=== PATIENT | male | born 1945 | race Caucasian/White ===

== ENCOUNTER 2019-09-10 07:57 | Day surgery (SDC) | payer MEDICARE ==
[2019-09-06 15:12] VITALS: BMI 24.3
[~2019-09-10 07:57] MED LIST: LACTATED RINGERS 1,000 ML IV SCH
[2019-09-10 08:22] VITALS: RESP 16; TEMP 97.5
[2019-09-10] MEDS ORDERED: LIDOCAINE 1% 20 ML VIAL (10MG/ML) FOR IV START INTRADERMA ONE (08:26)
[2019-09-10] MEDS ORDERED: MIDAZOLAM 2 MG/2 ML VIAL ONE (09:20)
[2019-09-10] MEDS ORDERED: fentaNYL (PF) 50 MCG/ML 2 ML AMP ONE (09:20)
[2019-09-10] MEDS ORDERED: LIDOCAINE 1% INJ 10MG/ML (20 ML MDV) ONE (09:20)
[2019-09-10] MEDS ORDERED: PROPOFOL 10 MG/ML 20 ML VIAL IV ONE (09:20)
--- NOTE | 2019-09-10 09:24 | P.GSHP ---
History of Present Illness H&P Date: 09/10/19 Chief Complaint: GERD This a 74-year-old male who presents today for EGD. He's had issues with GERD. Past Medical History Past Medical History: Coronary Artery Disease (CAD), GERD/Reflux, Hypertension, Osteoarthritis (OA), Prostate Disorder History of Any Multi-Drug Resistant Organisms: None Reported Past Surgical History: Heart Catheterization With Stent Past Anesthesia/Blood Transfusion Reactions: No Reported Reaction Date of Last Stent Placement:: 2011 Smoking Status: Never smoker - Past Family History Mother Family Medical History: No Reported History Medications and Allergies Home Medications Medication Instructions Recorded Confirmed Type Aspirin 81 mg PO DAILY 09/06/19 09/10/19 History Atenolol [Tenormin] 25 mg PO HS 09/06/19 09/10/19 History Atorvastatin [Lipitor] 80 mg PO HS 09/06/19 09/10/19 History Fenofibrate Nanocrystallized 145 mg PO HS 09/06/19 09/10/19 History [Fenofibrate] Multivitamins, Thera [Multivitamin 1 tab PO DAILY 09/06/19 09/10/19 History (formulary)] Pantoprazole Sodium 20 mg PO HS 09/06/19 09/10/19 History Ramipril [Altace] 5 mg PO HS 09/06/19 09/10/19 History Ubidecarenone [Co Q-10] 100 mg PO DAILY 09/06/19 09/10/19 History Zinc 9 mg PO DAILY 09/06/19 09/10/19 History Allergies Allergy/AdvReac Type Severity Reaction Status Date / Time No Known Allergies Allergy Verified 09/06/19 14:44 Surgical - Exam Vital Signs Temp Pulse Resp BP Pulse Ox 97.5 F L 56 L 16 181/93 94 L 09/10/19 08:17 09/10/19 08:17 09/10/19 08:17 09/10/19 08:17 09/10/19 08:17 - General well developed, well nourished, no distress - Eyes PERRL - ENT normal pinna - Neck no masses - Respiratory normal expansion - Cardiovascular Rhythm: regular - Abdomen Abdomen: soft, non tender Assessment and Plan Assessment: GERD. We'll perform EGD.
--- NOTE | 2019-09-10 09:35 | P.OP ---
Date of Procedure: 09/10/19 Preoperative Diagnosis: GERD Postoperative Diagnosis: Antral gastritis Hiatal hernia Esophagitis Procedure(s) Performed: EGD Anesthesia: MAC Surgeon: Akira Mirza Pathology: other (Antrum, esophagus) Condition: stable Disposition: PACU Description of Procedure: The patient's placed on the endoscopy table in the lateral position. He received IV sedation. The gastroscope placed oropharynx passed in the esophagus and into the stomach. The scope was then placed through the pylorus. The first and second portion of the duodenum appeared normal. Scope was then brought back the antrum and this appeared mildly inflamed. A biopsies performed. The scope was then retroflexed and the remainder of the stomach appeared normal. The patient had a moderate size hiatal hernia. The GE junction was at 38 cm. The distal esophagus appeared inflamed a biopsies performed. The proximal esophagus appeared normal. The scope was then withdrawn for patient.
[2019-09-10 09:49] VITALS: BP 114/62; PULSE 58
== END 2019-09-10 10:13 | disposition home or self-care (01) ==
LOC: ORWHC2ENDO 07:57
PROVIDERS: ATTEND Surgery
DX: K21.0 Gastro-esophageal reflux disease with esophagitis (principal); K44.9 Diaphragmatic hernia without obstruction or gangrene; K29.50 Unspecified chronic gastritis without bleeding; I25.10 Atherosclerotic heart disease of native coronary artery without angina pectoris; I10 Essential (primary) hypertension; E78.5 Hyperlipidemia, unspecified; M19.90 Unspecified osteoarthritis, unspecified site; Z95.5 Presence of coronary angioplasty implant and graft; Z87.438 Personal history of other diseases of male genital organs; Z79.82 Long term (current) use of aspirin; Z79.899 Other long term (current) drug therapy
CPT/HCPCS: 88305; 43239; J2250; J2001; J3010; J2704